=== PATIENT | female | born 1930 | race Caucasian/White ===

== ENCOUNTER 2019-11-08 23:40 | Inpatient (IN) | payer MEDICARE, BC ==
[2019-11-08] MEDS ORDERED: Norepinephrine 8 MG/0.9% NS 0 ML ONE (23:59)
[2019-11-09] MEDS ORDERED: Norepinephrine 8 MG/0.9% NS 250 ML IVPB SCH (00:05)
--- NOTE | 2019-11-09 04:56 | HP ---
PRIMARY CARE PHYSICIAN: Unknown. CHIEF COMPLAINT: Shortness of breath. Transfer from [facility] for further evaluation. HISTORY OF PRESENT ILLNESS: An 89-year-old female, resident of [facility] with past medical history of advanced dementia, requiring total care, recent hip fracture, who is bed-bound, and requires assistance to transfer to wheelchair, coronary artery disease with CABG, and stenting, and prior NV, anxiety, depression, who was brought into [facility] ER by EMS for 2 to 3 days history of nausea and vomiting and subsequent coughing episode with noted decrease in mentation with fevers and hypoxia of 80%, prompting evaluation. The patient was placed on oxygen nasal cannula via EMS with improvement in oxygen saturation. Workup in the ER revealed temperature of 102.8. Initial normotensive blood pressure readings with subsequent hypotensive readings. Influenza panel positive for flu B. Chest x-ray suggesting bibasilar consolidation, concerning for pneumonia, as well as findings of CHF, and urinalysis suggestive of urinary tract infection. Initial troponin I was elevated at 0.44. A CT chest without contrast suggested peribronchial ground-glass opacities and consolidations throughout both lungs with a dense consolidation in bibasilar lobes, likely due to atelectasis. The patient was administered IV fluid bolus, IV Lasix, IV Zithromax, and IV Rocephin, and initiated on Levophed drip via peripheral line, and transferred to [facility] for further evaluation. Blood pressures on peripheral Levophed drip ranged from 65/38 to 98/48, and patient's oxygen saturation is 95% to 97% on 3 L nasal cannula. ER discussed with the patient's daughter, Leydi, who is surrogate decision maker, and notes the patient is a DNR/DNI, and declines any further invasive lines or aggressive resuscitation. Family is contemplating palliative measures including hospice in a.m. I called the patient's daughter, Leydi at [phone], who corroborates history. She reiterates that the patient has had poor quality of life, most recently within past year and had some very aggressive measures done for her mother. She is contemplating hospice options eventually in the morning. She has no further questions at this time and notes additional family members will be coming in this morning. Upon evaluation, the patient is at bedside. The patient is somnolent, but arousable to noxious stimuli and does state her name and then just back off to sleep. Several attempts were made to obtain further information, which were unsuccessful. PAST MEDICAL HISTORY: Advanced dementia, coronary artery disease with prior CABG and PCI, diabetes, CHF, dementia, anxiety/depression. PAST SURGICAL HISTORY: CABG with prior stenting, left hip surgery. SOCIAL HISTORY: The patient is a resident of [facility]. Documented prior tobacco use. ALLERGIES: ARE EXTENSIVE AND LISTED TO CODEINE, IODINE, MORPHINE, PENICILLIN, SULFONAMIDES, AND TRAMADOL. REVIEW OF SYSTEMS: Unable to obtain due to the patient's encephalopathy. HOME MEDICATIONS: Currently unavailable, but will be reviewed as per admission medication reconciliation. FAMILY HISTORY: Unable to obtain from patient at this time. PHYSICAL EXAMINATION: VITAL SIGNS: Temperature initially 102.8, currently 98.2 rectally, pulse 64 to 71, blood pressure ranges from 63/58 to 90/48, oxygen saturation 96% on 3 L nasal canal, respirations 14 to 16, unlabored. GENERAL APPEARANCE: This is an elderly, malnourished, ill appearing female, who is mostly somnolent with eyes closed, and intermittently opens to noxious stimuli, and answers appropriately, but otherwise does not follow commands. HEENT: Normocephalic, atraumatic. No facial asymmetry. Frontotemporal wasting with sunken orbits noted. Dry oral mucous membranes with chapped lips noted. CARDIOVASCULAR: S1 and S2. Regular rate and rhythm. No harsh murmurs. No chest wall tenderness. Median sternotomy noted. LUNGS: Decreased air entry on bilateral anterior auscultation, coarse scattered breath sounds. No appreciable wheezing. ABDOMEN: Soft, nontender, and nondistended. EXTREMITIES: No edema, cyanosis, or deformities noted. Diffuse muscular atrophy. SKIN: Dry and cracked and warm to touch with scattered rashes. No abrasions. No skin pallor. GENITOURINARY: Evaluation, draining Saravia catheter with yellow-colored urine. LABORATORY DATA: From outside facility, WBC 8.8, H and H 11.7/37.2, and platelets 192. Troponin I 0.44. BNP 1088. Urinalysis reveals large blood, large leukocyte esterases, few squamous epithelial cells, occasional bacteria. Sodium 141, potassium 3.7, chloride 104, bicarb 24, glucose 180, BUN/creatinine 21/0.89, alkaline phosphatase 74, AST 18, ALT 10, total protein 7.1, total bilirubin 0.7, calcium 8.7, GFR 58. Influenza panel is flu positive for influenza B. Lactic acid 2.8. DIAGNOSTIC STUDIES: CT chest without contrast reveals bilateral peribronchial ground-glass opacity/consolidation which may represent pulmonary edema, pneumonia, or combination of these. Small bilateral pleural effusions with extensive dependent atelectasis in the lower lobes. One-view chest x-ray with cardiomegaly with vascular congestion and interstitial edema and focal consolidation in medial lung bases bilaterally which may represent superimposed pneumonia versus asymmetric pulmonary edema. A 12-lead EKG done at outside facility was read as left bundle branch block and normal sinus rhythm. ASSESSMENT: 1. Septic shock likely secondary to acute influenza B infection and superimposed pneumonia and possibly concomitant urinary tract infection. 2. Dehydration. 3. Acute metabolic encephalopathy secondary to #1 and #2. 4. Protein-calorie malnutrition of unspecified type. 5. Functional quadriplegia. 6. Advanced dementia. 7. Coronary artery disease, history of prior coronary artery bypass graft and stenting. PLAN: 1. The patient will be admitted as inpatient status and placed on telemetry unit. She is noted to have evidence of septic shock, but at present I discussed care with the patient's surrogate decision maker, daughter, Leydi, who reiterates the patient does not want any. The patient did not want any aggressive resuscitation or interventions done and thus patient will be made a DNR and DNI. Surrogate decision maker notes the patient has a poor functional quality of life within the past 1 year due to her advanced dementia and chronic bedridden state. Thus, we will continue patient on supportive therapies with IV fluids and IV antibiotics in the interim and place on droplet isolation. The patient will be reassessed by family members in the morning, and they are highly considering palliative measures including hospice, perhaps an inpatient setting versus back at patient's facility. Additional family members will be arriving in the morning. This was also additionally discussed by ER staff with Leydi. 2. Poor prognosis. 3. Code status: DNR and DNI. 4. Detriment. 5. Disposition: Admitted to inpatient status and placed on telemetry monitoring. Job ID: [id number]
[2019-11-09] MEDS: Sodium Chloride 0.9% 1,000 ML IV SCH ×2 (06:17→14:10)
[2019-11-09 06:31] VITALS: BMI 18.2
[2019-11-09] MEDS ORDERED: Nitroglycerin 0.4 MG TAB (25 Tab Bottle) SL PRN (14:08)
[2019-11-09] MEDS ORDERED: Acetaminophen 325 MG TAB PO PRN (14:08)
[2019-11-09] MEDS ORDERED: Benzonatate 100 MG CAP PO PRN (14:08)
[2019-11-09] MEDS: cefTRIAXone\\ROCEPHIN 1 GM in Sodium Chloride 0.9% 100 ML IVPB SCH (14:10)
[2019-11-09] MEDS: Azithromycin 500 MG in Sodium Chloride 0.9% 250 ML 250 ML IVPB SCH (14:11)
--- NOTE | 2019-11-09 15:56 | PDOC.EVN ---
Event Note - Event Note Event Note: Doing much better. Awake and alert. Dementia with confusion. BP has firmed up and VS otherwise ok. Lungs generally clear. Discussed with the patient's daughter. She was critically ill just a few hours ago with sepsis, hypotension and pressors. She has Flu B, CHF, pneumonia, UTI. In spite of that, she looks remarkably good now. Will continue to treat with antiviral, abx and fluids and see how she does. Her daughter is still firm that the patient is DNR.
[2019-11-09] MEDS: Atorvastatin Calcium 10 MG TAB PO SCH (21:31)
[2019-11-09] MEDS: Oseltamivir 75 MG CAP PO SCH (21:31)
[2019-11-10] MEDS: Levothyroxine Sodium 50 MCG TAB PO SCH (05:34)
[2019-11-10] MEDS: Sodium Chloride 0.9% 1,000 ML IV SCH ×2 (05:34→09:08)
[2019-11-10 08:44] LABS: ALT (SGPT) 9 U/L (8-55); AST (SGOT) 17 U/L (5-34); Albumin 2.7 g/dL (3.4-4.8); Alkaline Phosphatase 56 U/L (40-110); Anion Gap 11 mmol/L (10-20); BUN (Urea Nitrogen) 11 mg/dL (9.8-20.1); Bilirubin, Total 0.6 mg/dL (0.2-1.2); Calc. Creatinine Clearance 45 mL/min (70-130); Calcium 7.8 mg/dL (7.8-10.44); Carbon Dioxide 22 mmol/L (23-31); Chloride 114 mmol/L (98-107); Estimated GFR-MDRD 77; Globulin 3.3 g/dL (2.4-3.5); Glucose 105 mg/dL (83-110); Magnesium 1.9 mg/dL (1.6-2.6); Sodium 144 mmol/L (136-145)
[2019-11-10 08:53] LABS: Potassium 2.8 mmol/L (3.5-5.1)
[2019-11-10] MEDS ORDERED: FLU VACC TS2019-20(65YR UP)/PF 180 MCG/0.5 ML SYRINGE IM ONE (09:00)
[2019-11-10] MEDS ORDERED: Prevnar 13-Val Conj/PF 0.5 ML SYRINGE IM ONE (09:00)
[2019-11-10] MEDS: Escitalopram Oxalate 10 mg Tablet PO SCH (09:23)
[2019-11-10] MEDS: Multivit, Therapeutic 1 TAB PO SCH (09:23)
[2019-11-10] MEDS: Oseltamivir 75 MG CAP PO SCH ×2 (09:24→21:45)
[2019-11-10] MEDS: Prasugrel 10 MG TAB PO SCH (09:24)
[2019-11-10] MEDS: Sodium Chloride 0.9% 10 ML ONE (09:25)
[2019-11-10] MEDS: Potassium Chloride 20 MEQ TAB PO SCH ×2 (11:06→15:22)
--- NOTE | 2019-11-10 12:56 | RAD ---
FRONTAL RADIOGRAPH CHEST: Date: 11/10/2019 COMPARISON: None. HISTORY: Pneumonia. FINDINGS: No pneumothorax. There is perihilar interstitial prominence with associated perihilar air space disea se bilaterally. Right upper lobe air space disease is noted as well. In addition, there is dense biba silar consolidation/collapse with associated pleural effusions. Midline sternotomy wires are present. IMPRESSION: Extensive interstitial and alveolar opacity with bibasilar consolidation/collapse and bilateral pleur al effusions. Findings suggest pulmonary edema. Infectious pneumonitis/aspiration cannot be excluded. Follow-up to resolution advised. POS: [facility]
--- NOTE | 2019-11-10 14:26 | PDOC.HOSPP ---
- Subjective Subjective: Non verbal today. - Objective Vital Signs & Weight: Vital Signs (12 hours) Temp Pulse Resp BP Pulse Ox 11/10/19 11:35 95 11/10/19 11:02 99.0 F 74 24 H 101/52 L 93 L 11/10/19 09:32 95 11/10/19 07:58 92 L 11/10/19 07:47 98.9 F 84 24 H 157/72 H 92 L 11/10/19 05:30 97.5 F L 83 18 144/67 H 92 L Weight Admit Weight 112 lb 14.4 oz Weight 112 lb 14.4 oz I&O: 11/09/19 11/10/19 11/11/19 06:59 06:59 06:59 Intake Total 1680 Output Total 1120 Balance 560 Result Diagrams: 11/10/19 07:58 Hospitalist ROS - Medication Medications: Active Medications Generic Name Dose Route Start Last Admin Trade Name Freq PRN Reason Stop Dose Admin Acetaminophen 650 mg 11/09/19 14:08 11/10/19 09:23 Tylenol PO 650 mg Q6H PRN Administration Pain Atorvastatin Calcium 10 mg 11/09/19 21:00 11/09/19 21:31 Lipitor PO 10 mg HS JAREK Administration Cholecalciferol 2,000 units 11/10/19 09:00 11/10/19 09:23 Vitamin D3 PO 2,000 units DAILY JAREK Administration Escitalopram Oxalate 10 mg 11/10/19 09:00 11/10/19 09:23 Lexapro PO 10 mg DAILY JAREK Administration Sodium Chloride 1,000 mls @ 100 mls/hr 11/09/19 02:30 11/10/19 09:08 Normal Saline 0.9% IV Not Given .Q10H JAREK Azithromycin 500 mg/ Sodium 250 mls @ 250 mls/hr 11/09/19 14:00 11/09/19 14: 11 Chloride IVPB 250 mls 1400 JAREK Administration Ceftriaxone Sodium 1 gm/ 100 mls @ 200 mls/hr 11/09/19 14:00 11/09/19 14:10 Sodium Chloride IVPB 100 mls 1400 JAREK Administration Levothyroxine Sodium 50 mcg 11/10/19 06:00 11/10/19 05:34 Synthroid PO 50 mcg 0600 JAREK Administration Multivitamins 1 tab 11/10/19 09:00 11/10/19 09:23 Theragran PO 1 tab DAILY JAREK Administration Oseltamivir Phosphate 75 mg 11/09/19 21:00 11/10/19 09:24 Tamiflu PO 11/14/19 09:01 75 mg BID JAREK Administration Potassium Chloride 40 meq 11/10/19 11:00 11/10/19 11:06 K-Dur PO 11/10/19 15:01 40 meq 1100,1500 JAREK Administration Prasugrel 5 mg 11/10/19 09:00 11/10/19 09:24 Effient PO 5 mg DAILY JAREK Administration Ranolazine 500 mg 11/09/19 21:00 11/10/19 09:27 Ranexa PO Not Given BID JAREK - Exam General - other findings: Does not respond to external stimuli. Heart: RRR, no murmur Heart - other findings: Difficult auscultation given over-riding rales. Respiratory: rales, tachypneic Gastrointestinal: soft, non-distended Extremities: no cyanosis Hosp A/P (1) Acute respiratory failure with hypoxia Code(s): J96.01 - ACUTE RESPIRATORY FAILURE WITH HYPOXIA Status: Acute (2) Influenza B Code(s): J10.1 - FLU DUE TO OTH IDENT INFLUENZA VIRUS W OTH RESP MANIFEST Status: Acute (3) Pneumonia Code(s): J18.9 - PNEUMONIA, UNSPECIFIED ORGANISM Status: Acute (4) Congestive heart failure Code(s): I50.9 - HEART FAILURE, UNSPECIFIED Status: Acute (5) Pulmonary edema Code(s): J81.1 - CHRONIC PULMONARY EDEMA Status: Acute (6) Pleural effusion Code(s): J90 - PLEURAL EFFUSION, NOT ELSEWHERE CLASSIFIED Status: Acute (7) Acute metabolic encephalopathy Code(s): G93.41 - METABOLIC ENCEPHALOPATHY Status: Acute (8) Dementia Code(s): F03.90 - UNSPECIFIED DEMENTIA WITHOUT BEHAVIORAL DISTURBANCE Status: Acute (9) Hypokalemia Code(s): E87.6 - HYPOKALEMIA Status: Acute - Plan She has been on Tamiflu and Rocephin/azithromycin. BP rebounded after an initial severe hypotension treated with fluids and pressors. She rallied for a time yesterday, but today she appears to be doing very poorly. Her daughter has been clear that they do not want aggressive interventions. At this point, it appears that her respiratory status is rapidly deteriorating. Palliative Care Team consult obtained. They have spoken with the patient's daughter. She will be here again this afternoon. Sounds like the plan is to move toward hospice.
[2019-11-10] MEDS: cefTRIAXone\\ROCEPHIN 1 GM in Sodium Chloride 0.9% 100 ML IVPB SCH (14:41)
--- NOTE | 2019-11-10 15:32 | PDOC.FMACP ---
Advance Care Planning - Problem (1) Acute respiratory failure with hypoxia Status: Acute Code(s): J96.01 - ACUTE RESPIRATORY FAILURE WITH HYPOXIA (2) Influenza B Status: Acute Code(s): J10.1 - FLU DUE TO OTH IDENT INFLUENZA VIRUS W OTH RESP MANIFEST (3) Pneumonia Status: Acute Code(s): J18.9 - PNEUMONIA, UNSPECIFIED ORGANISM (4) Congestive heart failure Status: Acute Code(s): I50.9 - HEART FAILURE, UNSPECIFIED (5) Pulmonary edema Status: Acute Code(s): J81.1 - CHRONIC PULMONARY EDEMA (6) Pleural effusion Status: Acute Code(s): J90 - PLEURAL EFFUSION, NOT ELSEWHERE CLASSIFIED (7) Acute metabolic encephalopathy Status: Acute Code(s): G93.41 - METABOLIC ENCEPHALOPATHY (8) Dementia Status: Acute Code(s): F03.90 - UNSPECIFIED DEMENTIA WITHOUT BEHAVIORAL DISTURBANCE (9) Hypokalemia Status: Acute Code(s): E87.6 - HYPOKALEMIA - Note Participants: family, surrogate decision-maker Summary: Advanced Care Planning was discussed. The diagnosis, prognosis and goals of care were discussed. Appropriate forms and documentation to accomplish the goals of care were discussed. All questions were answered. The Palliative Care Team will be engaged to assist with completion of any outstanding forms that are needed. At this time, the plan is for her daughter to discuss this with her brother and then make decisions. They have indicated that they will likely want to pursue hospice care. That may be tomorrow. Time Spent (mins): 17
[2019-11-10] MEDS: Azithromycin 500 MG in Sodium Chloride 0.9% 250 ML 250 ML IVPB SCH (15:57)
[2019-11-10] MEDS ORDERED: Furosemide 20 MG/2 ML VIAL SLOW IVP SCH (18:15)
[2019-11-10] MEDS: Atorvastatin Calcium 10 MG TAB PO SCH (21:45)
[2019-11-11] MEDS: Levothyroxine Sodium 50 MCG TAB PO SCH (05:36)
[2019-11-11 08:33] LABS: #Lymphocytes 2.5 thou/uL (1.20-3.40); #Monocytes 0.5 thou/uL (0.11-0.59); %Eosinophils 0.1 % (0.0-10.0); %Neutrophils 76.9 % (42.0-75.0); Hemoglobin 12.1 g/dL (12.0-16.0); Mean Corpuscular HGB CONC 31.8 g/dL (32.0-36.0); Mean Corpuscular Hemoglobin 28.9 pg (27.0-31.0); Mean Corpuscular Volume 90.8 fL (78.0-98.0); Mean Platelet Volume 6.6 fL (7.4-10.4); Platelet Count 195 thou/uL (130-400); RBC Distribution Width 15.8 % (11.5-14.5); Red Blood Cell (RBC) Count 4.17 mill/uL (4.20-5.40); White Blood Cell (WBC) Count 13.1 thou/uL (4.8-10.8)
--- NOTE | 2019-11-11 08:40 | PDOC.HOSPP ---
- Subjective Subjective: Doing ok. Says her breathing is just as it sounds (referring to her wet cough) . Otherwise, she denies problems. She is still confused with her dementia. - Objective Vital Signs & Weight: Vital Signs (12 hours) Temp Pulse Resp BP Pulse Ox 11/11/19 04:00 98.9 F 93 16 147/76 H 97 11/10/19 21:32 98.8 F 92 25 H 172/78 H 95 Weight Admit Weight 112 lb 14.4 oz Weight 112 lb 14.4 oz I&O: 11/10/19 11/11/19 11/12/19 06:59 06:59 06:59 Intake Total 1680 890 Output Total 1120 2400 Balance 560 -1510 Result Diagrams: 11/11/19 08:02 11/10/19 07:58 Hospitalist ROS - Medication Medications: Active Medications Generic Name Dose Route Start Last Admin Trade Name Freq PRN Reason Stop Dose Admin Acetaminophen 650 mg 11/09/19 14:08 11/10/19 09:23 Tylenol PO 650 mg Q6H PRN Administration Pain Atorvastatin Calcium 10 mg 11/09/19 21:00 11/10/19 21:45 Lipitor PO 10 mg HS JAREK Administration Cholecalciferol 2,000 units 11/10/19 09:00 11/10/19 09:23 Vitamin D3 PO 2,000 units DAILY JAREK Administration Escitalopram Oxalate 10 mg 11/10/19 09:00 11/10/19 09:23 Lexapro PO 10 mg DAILY JAREK Administration Azithromycin 500 mg/ Sodium 250 mls @ 250 mls/hr 11/09/19 14:00 11/10/19 15: 57 Chloride IVPB 250 mls 1400 JAREK Administration Ceftriaxone Sodium 1 gm/ 100 mls @ 200 mls/hr 11/09/19 14:00 11/10/19 14:41 Sodium Chloride IVPB 100 mls 1400 JAREK Administration Levothyroxine Sodium 50 mcg 11/10/19 06:00 11/11/19 05:36 Synthroid PO 50 mcg 0600 JAREK Administration Multivitamins 1 tab 11/10/19 09:00 11/10/19 09:23 Theragran PO 1 tab DAILY JAREK Administration Oseltamivir Phosphate 75 mg 11/09/19 21:00 11/10/19 21:45 Tamiflu PO 11/14/19 09:01 75 mg BID JAREK Administration Prasugrel 5 mg 11/10/19 09:00 11/10/19 09:24 Effient PO 5 mg DAILY JAREK Administration Ranolazine 500 mg 11/09/19 21:00 11/10/19 21:45 Ranexa PO Not Given BID JAREK - Exam General Appearance: NAD, awake alert Heart: RRR, no murmur, no gallops, no rubs, normal peripheral pulses Respiratory - other findings: Modest scattered rales. Gastrointestinal: soft, non-tender Extremities: no cyanosis, no clubbing, no edema Skin: normal turgor Psychiatric: not oriented Hosp A/P (1) Acute respiratory failure with hypoxia Code(s): J96.01 - ACUTE RESPIRATORY FAILURE WITH HYPOXIA Status: Acute (2) Influenza B Code(s): J10.1 - FLU DUE TO OTH IDENT INFLUENZA VIRUS W OTH RESP MANIFEST Status: Acute (3) Pneumonia Code(s): J18.9 - PNEUMONIA, UNSPECIFIED ORGANISM Status: Acute (4) Congestive heart failure Code(s): I50.9 - HEART FAILURE, UNSPECIFIED Status: Acute (5) Pulmonary edema Code(s): J81.1 - CHRONIC PULMONARY EDEMA Status: Acute (6) Pleural effusion Code(s): J90 - PLEURAL EFFUSION, NOT ELSEWHERE CLASSIFIED Status: Acute (7) Acute metabolic encephalopathy Code(s): G93.41 - METABOLIC ENCEPHALOPATHY Status: Acute (8) Dementia Code(s): F03.90 - UNSPECIFIED DEMENTIA WITHOUT BEHAVIORAL DISTURBANCE Status: Acute (9) Hypokalemia Code(s): E87.6 - HYPOKALEMIA Status: Acute - Plan She has been on Tamiflu and Rocephin/azithromycin. BP rebounded after an initial severe hypotension treated with fluids and pressors. Her course has been very much up and down. Today she actually looks good again. Her daughter has been clear that they do not want aggressive interventions. Contemplating hospice, but I spoke with her this morning and updated her on the rebound. We will continue to treat her aggressively for now and see how she does. Certainly exceeding expectations. Palliative Care Team consult obtained. Diuresed a little last evening as her BP had fully firmed up.
[2019-11-11 08:53] LABS: ALT (SGPT) 9 U/L (8-55); AST (SGOT) 19 U/L (5-34); Albumin 2.9 g/dL (3.4-4.8); Alkaline Phosphatase 60 U/L (40-110); Anion Gap 14 mmol/L (10-20); BUN (Urea Nitrogen) 11 mg/dL (9.8-20.1); Bilirubin, Total 0.7 mg/dL (0.2-1.2); Calc. Creatinine Clearance 42 mL/min (70-130); Calcium 8.3 mg/dL (7.8-10.44); Carbon Dioxide 28 mmol/L (23-31); Chloride 112 mmol/L (98-107); Estimated GFR-MDRD 71; Globulin 3.5 g/dL (2.4-3.5); Glucose 109 mg/dL (83-110); Protein, Total 6.4 g/dL (6.0-8.3); Sodium 151 mmol/L (136-145)
[2019-11-11] MEDS ORDERED: Nitroglycerin 0.1mg/Hour PATCH TD SCH (09:00)
[2019-11-11 09:01] LABS: Potassium 2.9 mmol/L (3.5-5.1)
[2019-11-11] MEDS: Prasugrel 10 MG TAB PO SCH (09:59)
[2019-11-11] MEDS: Multivit, Therapeutic 1 TAB PO SCH (10:01)
[2019-11-11] MEDS: Oseltamivir 75 MG CAP PO SCH ×2 (10:01→21:03)
[2019-11-11] MEDS: Escitalopram Oxalate 10 mg Tablet PO SCH (10:02)
[2019-11-11] MEDS: Sodium Chloride 0.9% 10 ML ONE ×2 (10:03→14:38)
[2019-11-11] MEDS: Potassium Chloride 40 MEQ in Sodium Chloride 0.9% 250 ML 250 ML IVPB SCH ×2 (10:45→17:23)
[2019-11-11] MEDS: cefTRIAXone\\ROCEPHIN 1 GM in Sodium Chloride 0.9% 100 ML IVPB SCH (14:37)
[2019-11-11] MEDS: Azithromycin 500 MG in Sodium Chloride 0.9% 250 ML 250 ML IVPB SCH (15:16)
[2019-11-11] MEDS: Atorvastatin Calcium 10 MG TAB PO SCH (21:03)
[2019-11-12 05:02] LABS: Anion Gap 14 mmol/L (10-20); BUN (Urea Nitrogen) 12 mg/dL (9.8-20.1); Calc. Creatinine Clearance 45 mL/min (70-130); Calcium 8.4 mg/dL (7.8-10.44); Carbon Dioxide 22 mmol/L (23-31); Chloride 117 mmol/L (98-107); Estimated GFR-MDRD 77; Glucose 110 mg/dL (83-110); Potassium 3.9 mmol/L (3.5-5.1); Sodium 149 mmol/L (136-145)
[2019-11-12 05:08] LABS: Band 3 % (5-11); Lymphocytes 23 % (21-51); MDiff Complete? YES; Mean Corpuscular HGB CONC 30.3 g/dL (32.0-36.0); Mean Corpuscular Hemoglobin 27.4 pg (27.0-31.0); Mean Corpuscular Volume 90.5 fL (78.0-98.0); Monocytes 2 % (0-10); Neutrophil 72 % (42-75); Platelet Count 209 thou/uL (130-400); Platelet Morphology Comment Appears Adequate; RBC Distribution Width 16.2 % (11.5-14.5); RBC Morphology Normal; Red Blood Cell (RBC) Count 4.38 mill/uL (4.20-5.40); White Blood Cell (WBC) Count 14.3 thou/uL (4.8-10.8)
[2019-11-12] MEDS: Levothyroxine Sodium 50 MCG TAB PO SCH (06:19)
[2019-11-12] MEDS ORDERED: Furosemide 40 MG/4 ML VIAL SLOW IVP SCH ×2 (08:30→16:00)
[2019-11-12] MEDS ORDERED: Potassium Chloride 20 MEQ TAB PO SCH (08:30)
[2019-11-12] MEDS: Oseltamivir 75 MG CAP PO SCH (08:33)
[2019-11-12] MEDS: Multivit, Therapeutic 1 TAB PO SCH (08:33)
[2019-11-12] MEDS: Prasugrel 10 MG TAB PO SCH (08:33)
[2019-11-12] MEDS: Escitalopram Oxalate 10 mg Tablet PO SCH (08:33)
--- NOTE | 2019-11-12 12:44 | PDOC.PALCO ---
Palliative Care Consult - Consult Details Requesting Physician: Dr Sanford Reason for Consult: assistance with communication prognosis/disease, family support, complex decision-making Family Members Present: Patient sons and daughter in law - Pertinent HPI 89 year old female who resides at [facility] in [place] on the memory care unit. Son reports an increase in assistance with ADL's and prior to admission was wheel chair bound with notable decline both cognitively and physically. Incontinent of bowel and bladder with assistance required for meals. Patient had been at her baseline, then three days prior to admission patient was noted to have nausea and vomiting with fever and a cough. Subsequently became hypoxic at 80% and was transported to the hospital for evaluation and was admitted for medical management of septic shock most likely due to influenza and also noted to have dehydration, acute metabolic encephalopathy. - Social History Smoking Status: Former smoker Smoking: quit greater than 1 year Alcohol Use: none Drug Use History: none Living Situation: intermediate resident - Medications MAR Reviewed: Yes - Allergies Allergies/Adverse Reactions: Allergies Allergy/AdvReac Type Severity Reaction Status Date / Time codeine Allergy Verified 11/09/19 06:34 iodine Allergy Verified 11/09/19 06:34 morphine Allergy Verified 11/09/19 06:34 Penicillins Allergy Verified 11/09/19 06:34 Sulfa (Sulfonamide Allergy Verified 11/09/19 06:34 Antibiotics) tramadol Allergy Verified 11/09/19 06:34 - Subjective Lethargic, confused, generalized weakness. Attempting to remove O2 face mask. - ROS Non Response: due to mental status Constitutional: weakness - Objective Vital Signs: Vital Signs - Most Recent Temp Pulse Resp BP Pulse Ox 97.6 F 94 32 H 159/77 H 98 11/12/19 12:00 11/12/19 12:00 11/12/19 12:00 11/12/19 12:00 11/12/19 12:00 - Physical Exam Constitutional: confusion, emaciated, encephalitic, ill appearing HEENT: moist MMs, sclera anicteric Respiratory: no wheezing, diminished lung sound, labored respirations Cardiovascular: RRR Gastrointestinal: soft, non-tender, incontinent Genitourinary: [place] catheter Musculoskeletal: no clubbing, diffuse muscle atrophy Neurology: moves all 4 limbs Skin: cap refill <2 seconds, bruising, fragile, friable Deviation from normal: restless - Problem List (1) Palliative care encounter Code(s): Z51.5 - ENCOUNTER FOR PALLIATIVE CARE Current Visit: Yes Status: Acute (2) Acute metabolic encephalopathy Code(s): G93.41 - METABOLIC ENCEPHALOPATHY Current Visit: Yes Status: Acute (3) Acute respiratory failure with hypoxia Code(s): J96.01 - ACUTE RESPIRATORY FAILURE WITH HYPOXIA Current Visit: Yes Status: Acute (4) Congestive heart failure Code(s): I50.9 - HEART FAILURE, UNSPECIFIED Current Visit: Yes Status: Acute (5) Dementia Code(s): F03.90 - UNSPECIFIED DEMENTIA WITHOUT BEHAVIORAL DISTURBANCE Current Visit: Yes Status: Acute (6) Pneumonia Code(s): J18.9 - PNEUMONIA, UNSPECIFIED ORGANISM Current Visit: Yes Status: Acute - Plan/Recommendations Plan: Dr Vidal visited with patient son just prior to palliative care contact. Family interested in Hospice care secondary to continued decline related to dementia and poor health status related to chronic conditions. Opting to seek management of chronic conditions from a symptom management perspective verses treatment. Family waiting on one more sibling/child of patient to discuss as a family with the hope of transitioning back to [facility]. *Consideration to transition to Hospice to manage symptoms and promote comfort at end of life. *Bisacodyl added secondary to no documented BM since hospital stay. *Discussed with Dr Bah Please also refer to Palliative Care RN notes under note section. [50] minutes spent on this encounter with >50% of the time in counseling and coordination of care. Thank you for this very appropriate consult.
[2019-11-12] MEDS ORDERED: Bisacodyl 10 MG SUPP PR PRN (12:47)
[2019-11-12] MEDS: cefTRIAXone\\ROCEPHIN 1 GM in Sodium Chloride 0.9% 100 ML IVPB SCH (14:03)
[2019-11-12] MEDS: Azithromycin 500 MG in Sodium Chloride 0.9% 250 ML 250 ML IVPB SCH (14:04)
[2019-11-12 15:47] VITALS: BP 152/72; TEMP 99.2
--- NOTE | 2019-11-12 15:56 | CON ---
DATE OF CONSULTATION: 11/12/2019 SERVICE: Pulmonary Medicine. REASON FOR CONSULTATION: Bilateral pleural effusions. HISTORY OF PRESENT ILLNESS: The patient is an 89-year-old white female with past medical history significant for fairly advanced dementia. She presented to the emergency department on November 09, 2019, with severe sepsis secondary to the pneumonia. She was proven to have influenza. At the outside emergency department, she was appropriately resuscitated with fluid. Her end-organ damage cleared through the hospital stay, however, she started developing increasing difficulty breathing and hypoxia. A chest x-ray was performed, demonstrated bilateral pleural effusions. I was contacted for this reason. At this point, the patient has extremely advanced dementia and is in a bed-bound state. She is barely conversive except on very good days. Her quality of life is quite poor based on what the family is suggesting to us. We talked about different things that we could do moving forward, but ultimately, their intentions are to move forward with hospice care on discharge from the hospital, most likely. There is one son, who is here. I spoke with him, but he said he believes that his 2 siblings are likely going to be moving in this direction as even on a good day, the patient does not have much quality left. We talked about why we would do a thoracentesis and why we would avoid doing a thoracentesis. He understands that if there is infection in that space, a surgical procedure would be required to be aggressive. Under the circumstances that there is an infection in that space, he would not want to pursue a thoracotomy. As such, from my perspective, there would be no reason to pursue a thoracentesis. That being said, much of my suspicion is true that we are dealing with a volume resuscitation issue and not a true infectious issue as she has cleared her inflammatory profile very nicely. PAST MEDICAL HISTORY: 1. Dementia, advanced. 2. Debility with bed-bound status. 3. Coronary artery disease. 4. Type 2 diabetes mellitus. 5. Chronic systolic heart failure with EF of 15%. 6. Depression. PAST SURGICAL HISTORY: 1. Coronary artery bypass graft. 2. History of percutaneous coronary intervention, status post PCI. 3. Left hip surgery. SOCIAL HISTORY: She is a resident of [facility]. No current alcohol, tobacco, or illicit drug use, though she was a prior smoker. She has no access to any illicit drugs. FAMILY HISTORY: Noncontributory. ALLERGIES: CODEINE, IODINE, MORPHINE, PENICILLIN, SULFONAMIDE, AND TRAMADOL. MEDICATIONS: List of her inpatient medications were reviewed. I have added some Lasix and a single dose of potassium. REVIEW OF SYSTEMS: Cannot be obtained as the patient has advanced dementia. PHYSICAL EXAMINATION: VITAL SIGNS: Afebrile; pulse 94; blood pressure 159/77; respirations 32; and saturation 98%, on 15% via Venturi mask. HEENT: Normocephalic and atraumatic. Sclerae are white. Conjunctivae are pink. Oral mucosa is moist and without lesions. LUNGS: Decent air entry. Extensive crackling is present. No prolonged expiratory phase or wheezing is appreciated. HEART: Normal rate, regular. ABDOMEN: Soft, nontender, and nondistended. Bowel sounds are positive. MUSCULOSKELETAL: No cyanosis or clubbing. Trace pitting is present in the dependent regions of her pelvis. GENITOURINARY: No [place]avia. NEUROLOGIC: Grossly nonfocal. LABORATORY DATA: WBC 14.3, hemoglobin 12.0, and platelets 209,000. Sodium 149 and gently downtrending, potassium 3.9. Basic metabolic profile is otherwise unremarkable. Prior liver function studies were negative. Microbiology is negative to date. IMAGING DATA: Echocardiogram demonstrates 15% to 20% ejection fraction with diastolic dysfunction present. Ppht-cj-lnisjjll mitral regurgitation is present as well as minimal aortic regurgitation. Large pleural effusion is noted. Chest x-ray demonstrates bilateral pleural effusions. They appear to be simple and layering. The right is much larger compared to the left. In addition to that, it appears that the superior vena cava is distended. ASSESSMENT: 1. Acute hypoxic respiratory failure. 2. Pleural effusion, bilateral, likely secondary to volume resuscitation. 3. Community-acquired pneumonia secondary to influenza B. 4. Acute on chronic systolic heart failure. DISCUSSION AND PLAN: After talking about the risks and benefits of doing a thoracentesis versus not doing this procedure, the family has elected to hold off on that. I will give her couple of doses of Lasix today and into tomorrow morning. We will watch her electrolytes including magnesium and potassium. At this point, thoracentesis is not being considered. The family understands that we could be missing the diagnosis of an infected space that will require surgical debridement, but even under those circumstances, they would not want to pursue a surgical debridement and if it came to that, they would opt for transition to comfort measures only. As such, from my perspective, there is not much utility in doing the thoracentesis other than for therapeutic benefit. Hopefully, she will respond nicely to Lasix and this will be a move point. We will continue to wean the oxygen as tolerated. Critical Care will follow for now. 70 minutes have been devoted to this patient in various activities. I personally reviewed all imaging studies and laboratory data noted within this document. For fifty percent of this time, I was interacting with the patient at the bedside or coordinating care with the care team. For the remainder of the time I was immediately available to the patient in the hospital unit. Job ID: [id number] MTDD
[2019-11-12] MEDS ORDERED: Furosemide 20 MG/2 ML VIAL SLOW IVP SCH (16:00)
[2019-11-13] MEDS ORDERED: Furosemide 40 MG/4 ML VIAL SLOW IVP SCH (09:00)
--- NOTE | 2019-11-13 15:23 | DIS ---
DATE OF ADMISSION: 11/09/2019 DATE OF DISCHARGE: 11/12/2019 DISCHARGE DIAGNOSES: 1. Septic shock. 2. Pneumonia. 3. Urinary tract infection. 4. Influenza B. 5. Congestive heart failure, systolic, acute on chronic. 6. 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 7. Acute hypoxic respiratory failure. 8. Large pleural effusion. 9. Diastolic dysfunction. 10. Bfwa-iu-ywbkpjik tricuspid regurgitation. 11. Chronic dementia. 12. Severe debility. HISTORY OF PRESENT ILLNESS: This patient is an 89-year-old female with advanced dementia and severe debility, who is essentially bed-bound, who had 3 days of vomiting at the alf and subsequently sent to emergency department. There, she was noted to have evidence of pneumonia, pleural effusion, pulmonary edema on her chest x-ray, and she was positive for influenza B on screening and she was hypotensive, requiring fluid resuscitation and pressor support. She was subsequently transferred to our facility, where her blood pressure stabilized and she was able to come off the pressors. HOSPITAL COURSE: The patient was admitted to the hospital with acute hypoxic respiratory failure secondary to pneumonia, pleural effusion, pulmonary edema, and underlying influenza B infection and she had an oxygenation support with BiPAP as needed. She had aggressive antibiotic medications started and orders for the antivirals. Echocardiogram revealed an ejection fraction of 15% to 20% with diastolic dysfunction. Hipe-au-vzuiqjpt mitral regurgitation and jjfu-uh-qkmrlfrf tricuspid regurgitation with a large pleural effusion. The patient initially did improve somewhat. She was able to come fully awake and converse with the family a bit and she subsequently had recurrent decline in her respiratory status as well as her mental status, although she did remain generally awake. She was requiring escalating amounts of oxygen ultimately to Venti mask. The patient's family had been clear that she was a do not resuscitate and initially had felt the patient would likely go fairly directly into hospice care. However, after her initial rally, we opted to give it a bit more time to see how she responded. However, with her subsequent decline in her respiratory status, the conversation was broached again. Palliative Care kind of involved as well. Dr. Vidal was consulted to determine if there would be an opportunity for thoracentesis to see if that might expedite some prompt resolution. However, he felt like that was not the appropriate course of action and the diuretics were given once her blood pressure was actually stabilized and ongoing conversations with the family. I made it clear to them that it is entirely possible that the patient could make it through this particular episode of care. However, given the severity of her overall illness, it would likely be a bit of a protracted course and her functional status would likely be no better in fact likely worse than her baseline had been prior to her admission. Given the fact that baseline was severe dementia with essentially bed-bound status. The patient's children agreed that she would not want to pursue further aggressive treatment. Hospice was consulted and family had the opportunity to meet with them and discuss options and ultimately decided to pursue hospice care. The patient was accepted to hospice [facility] to their facility and the patient was ultimately discharged to their service. Further treatment will be per the Hospice Team. TIME SPENT: The total time in discharge activities was 39 minutes. Job ID: [id number]
--- NOTE | 2019-11-13 22:40 | PQF ---
AMOR MITCHELL DAVID R MD [id number] [facility]-268 [id number] CLINICAL DOCUMENTATION CLARIFICATION FORM: POST DISCHARGE Addendum to original discharge summary date: ____ Late entry note date: __ DATE: 11/13/19 ATTN: Stevo Bah Please exercise your independent, professional judgment in responding to the clarification form. Clinical indicators are provided on the bottom of this form for your review Can you please further clarify if Septic shock is ruled in or ruled out? Septic shock [ ] Ruled in diagnosis [ ] Continue to treat [ ] Resolved [ ] Ruled out diagnosis [ ] Cannot rule out diagnosis [ ] Other diagnosis [ ] Unable to determine In addition, please specify: Present on Admission (POA): [ ] Yes [ ] No [ ] Unable to determine For continuity of documentation, please document condition throughout progress notes and discharge summary. Thank You. CLINICAL INDICATORS - SIGNS / SYMPTOMS / LABS H and P pg.1- BP on peripheral Levophed drip ranged from 65/38 to 98/48 H and P pg.2- Vital signs Temp 102.8, pulse 64-71, BP 63/58-90/48mmHg H and P pg.3 Septic shock likely secondary to acute influenza B infection and super imposed pneumonia H and P pg.4- she is noted to have evidence of septic shock Event Notes- she was critically ill just a few hours ago with sepsis, hypotension and pressors RISK FACTORS UTI- H and P pg.3 PNA- H and P pg.3 Influenza B- H and P pg.3 Dehydration- H and P pg.3 Acute metabolic encephalopathy- H and P pg.3 acute hypoxic respiratory failure- Consult pg.3 TREATMENTS Antiviral- Event notes IV fluids- MAR IV antibiotics- MAR IV Levophed- DEC Chest X ray 11/10 Pulmonary Consult- Dr. Vidal (This form is maintained as a part of the permanent medical record) 2014 [employer]. All Rights Reserved [email or web address] [not provided] MTDD
== END 2019-11-12 20:10 | disposition hospice, inpatient (51) | DRG 871 ==
LOC: ERS 23:40 → ERHOLD 11-09 02:24 → 2NO 11-09 05:16
PROVIDERS: ADMIT Hospitalist; ATTEND Hospitalist
PROC: 3E033XZ Introduction of Vasopressor into Peripheral Vein, Percutaneous Approach (ICD-10-PCS; principal; 2019-11-09)
DX: A41.89 Other specified sepsis (principal); J10.01 Influenza due to other identified influenza virus with the same other identified influenza virus pneumonia; R65.21 Severe sepsis with septic shock; G93.41 Metabolic encephalopathy; R53.2 Functional quadriplegia; J96.01 Acute respiratory failure with hypoxia; I50.23 Acute on chronic systolic (congestive) heart failure; N39.0 Urinary tract infection, site not specified; E46 Unspecified protein-calorie malnutrition; I42.9 Cardiomyopathy, unspecified; Z66 Do not resuscitate; Z51.5 Encounter for palliative care; I25.10 Atherosclerotic heart disease of native coronary artery without angina pectoris; E78.5 Hyperlipidemia, unspecified; E03.9 Hypothyroidism, unspecified; I11.0 Hypertensive heart disease with heart failure; F03.90 Unspecified dementia, unspecified severity, without behavioral disturbance, psychotic disturbance, mood disturbance, and anxiety; F41.9 Anxiety disorder, unspecified; F32.9 Major depressive disorder, single episode, unspecified; E86.0 Dehydration; E87.6 Hypokalemia; I07.1 Rheumatic tricuspid insufficiency; Z95.1 Presence of aortocoronary bypass graft; Z90.49 Acquired absence of other specified parts of digestive tract; Z87.891 Personal history of nicotine dependence; Z88.5 Allergy status to narcotic agent; Z88.0 Allergy status to penicillin; Z88.2 Allergy status to sulfonamides; Z88.6 Allergy status to analgesic agent; Z74.01 Bed confinement status
CPT/HCPCS: 36415; 71045; 80048; 80053; 83735; 85025; 93306; 96360; J0456; J0696; J1940; J3480; J3490; J7050